=== PATIENT | male | born 1945 | race Caucasian/White ===

== ENCOUNTER 2016-06-19 07:14 | Day surgery (SDC) | payer OTHER ==
[2016-06-18 14:50] VITALS: BMI 30.1
[2016-06-19] MEDS ORDERED: PROPOFOL 20 ML ONE ×2 (07:17)
[2016-06-19] MEDS ORDERED: LIDOCAINE HCL/PF 2% SDV 5ML VIAL ONE (07:18)
[2016-06-19 07:44] VITALS: TEMP 98.4
[2016-06-19 11:01] VITALS: BP 109/80; PULSE 69
--- NOTE | 2016-06-21 13:08 | PATH ---
Surgical Pathology Report Patient Name: LALY LORENZ [facility]. Rec. #: [id number] /Age/Gender: 1945 (Age: 70) / M Account: [id number] Location: Taken: 06/19/2016 Received: 06/19/2016 Reported: 06/21/2016 Physicians: Eloy Zuñiga M.D. Specimen(s) Received A: BX HEPATIC FLEXURE B: BX RIGHT COLON C: BX DISTAL RIGHT COLON D: BX TRANSVERSE COLON Clinical History History of polyps Polyps Final Diagnosis A. COLON, HEPATIC FLEXURE, POLYPECTOMY: TUBULAR ADENOMA. B. COLON, RIGHT, BIOPSY: TUBULAR ADENOMA. C. COLON, DISTAL RIGHT, BIOPSY: NONSPECIFIC FOCAL ACTIVE COLITIS WITH REACTIVE AND HYPERPLASTIC CHANGES. NO ARCHITECTURAL DISTORTION, GRANULOMAS, OR DYSPLASIA IDENTIFIED. D. COLON, TRANSVERSE, BIOPSY: TUBULAR ADENOMA. Electronically Signed Skip Laguerre M.D. Gross Description A. Received in formalin labeled "hepatic flexure," is a 0.8 x 0.5 x 0.3 cm henderson, polypoid portion of soft tissue which is submitted in toto in one cassette. B. Received in formalin labeled "right colon," are 2 henderson, polypoid portions of soft tissue measuring 0.5 x 0.3 x 0.2 cm and 0.8 x 0.5 x 0.3 cm. The specimens are submitted in toto in one cassette. C. Received in formalin, labeled "distal right colon" is a henderson, irregular portion of soft tissue measuring 0.5 cm. in greatest dimension. The specimen is submitted in toto in one cassette. D. Received in formalin, labeled "transverse" are 2 henderson, irregular portions of soft tissue measuring 0.3 and 0.4 cm. in greatest dimension. The specimens are submitted in toto in one cassette. 06/20/201606/20/2016
== END 2016-06-19 11:00 | disposition home or self-care (01) ==
LOC: FASU-ENDO 07:14
PROVIDERS: ATTEND Internal Medicine Gastroenterology
PROC: 0DBL8ZX Excision of Transverse Colon, Via Natural or Artificial Opening Endoscopic, Diagnostic (ICD-10-PCS; 2016-06-19)
PROC: 0DBK8ZX Excision of Ascending Colon, Via Natural or Artificial Opening Endoscopic, Diagnostic (ICD-10-PCS; principal; 2016-06-19 09:27)
PROC: 0DBK8ZX Excision of Ascending Colon, Via Natural or Artificial Opening Endoscopic, Diagnostic (ICD-10-PCS; 2016-06-19 09:27)
DX: Z86.010 Personal history of colon polyps (principal); D12.2 Benign neoplasm of ascending colon; D12.3 Benign neoplasm of transverse colon; K57.30 Diverticulosis of large intestine without perforation or abscess without bleeding; K52.89 Other specified noninfective gastroenteritis and colitis
CPT/HCPCS: 88305-TC

== ENCOUNTER 2018-06-29 07:34 | Day surgery (SDC) | payer OTHER ==
[2018-06-24 14:16] VITALS: BMI 32.1
[2018-06-29 08:05] VITALS: TEMP 97.8
[2018-06-29] MEDS ORDERED: PROPOFOL 20 ML ONE ×3 (09:18)
[2018-06-29] MEDS ORDERED: LIDOCAINE HCL/PF 2% SDV 5ML VIAL ONE (09:19)
[2018-06-29 10:49] VITALS: BP 139/77; PULSE 58
--- NOTE | 2018-07-01 16:12 | PATH ---
Surgical Pathology Report Patient Name: LALY LORENZ [facility]. Rec. #: [id number] /Age/Gender: 1945 (Age: 72) / M Account: [id number] Location: [facility] Taken: 06/29/2018 Received: 06/29/2018 Reported: 07/01/2018 Physicians: Eloy Zuñiga M.D. Specimen(s) Received A: LEFT COLON POLYP B: HEPATIC FLEXURE POLYP Clinical History History of polyps Postoperative diagnosis: Polyp, diverticulosis Final Diagnosis A. LEFT COLON POLYP, POLYPECTOMY: TUBULAR ADENOMA. B. HEPATIC FLEXURE POLYP, POLYPECTOMY: TUBULAR ADENOMA. Electronically Signed Pa Rutherford M.D. Gross Description A. Received in formalin, labeled "polypectomy left colon" is a henderson, irregular portion of soft tissue measuring 0.3 cm. in greatest dimension. The specimen is submitted in toto in one cassette. B. Received in formalin, labeled "biopsy polyp hepatic flexure" is a henderson, irregular portion of soft tissue measuring 0.4 cm. in greatest dimension. The specimen is submitted in toto in one cassette. /06/30/2018 saudi06/30/2018
== END 2018-06-29 10:30 | disposition home or self-care (01) ==
LOC: FASU 07:34
PROVIDERS: ATTEND Internal Medicine Gastroenterology
PROC: 0DBL8ZX Excision of Transverse Colon, Via Natural or Artificial Opening Endoscopic, Diagnostic (ICD-10-PCS; principal; 2018-06-29 09:05)
PROC: 0DBM8ZX Excision of Descending Colon, Via Natural or Artificial Opening Endoscopic, Diagnostic (ICD-10-PCS; 2018-06-29 09:05)
DX: Z86.010 Personal history of colon polyps (principal); D12.3 Benign neoplasm of transverse colon; D12.4 Benign neoplasm of descending colon; K57.30 Diverticulosis of large intestine without perforation or abscess without bleeding
CPT/HCPCS: 88305-TC

== ENCOUNTER 2023-09-11 07:30 | Day surgery (SDC) | payer OTHER ==
[2023-09-04 12:41] VITALS: BMI 32.1
[2023-09-11] MEDS ORDERED: LIDOCAINE HCL/PF 2% SDV 5ML VIAL ONE (07:39)
[2023-09-11] MEDS ORDERED: PROPOFOL 100 ML ONE (07:40)
[2023-09-11 07:54] VITALS: TEMP 97.1
[2023-09-11 09:15] VITALS: BP 132/74; PULSE 49; RESP 18
== END 2023-09-11 09:05 | disposition home or self-care (01) ==
LOC: FASU-ENDO 07:30
PROVIDERS: ATTEND Internal Medicine Gastroenterology
PROC: 0DJD8ZZ Inspection of Lower Intestinal Tract, Via Natural or Artificial Opening Endoscopic (ICD-10-PCS; principal; 2023-09-11 08:15)
DX: Z12.11 Encounter for screening for malignant neoplasm of colon (principal); K57.30 Diverticulosis of large intestine without perforation or abscess without bleeding; Z86.010 Personal history of colon polyps